=== PATIENT | male | born 1950 | race Caucasian/White ===

== ENCOUNTER → 2016-07-10 | Outpatient (CLI) | payer MEDICARE ==
--- NOTE | 2016-07-10 15:06 | NM ---
EXAMINATION TYPE: NM bone scan whole body DATE OF EXAM: 07/10/2016 2:54 PM COMPARISON: NONE HISTORY: Cervical pain. Delayed whole-body scanning was performed following the injection of 25.9 mCi Tc 99m MDP. Images acq uired 3 hours post injection. FINDINGS: There is minimal uptake in the posterior elements on the left in the mid cervical spine. There is a s mall amount of increased activity in what appears to represent T2 vertebral body. IMPRESSION: 1. PROBABLE DEGENERATIVE UPTAKE ON THE LEFT IN THE MID CERVICAL REGION. 2. INCREASED ACTIVITY IN THE T2 VERTEBRAL BODY IS NONSPECIFIC. FURTHER INVESTIGATION TO EXCLUDE A EDGAR PLASTIC PROCESS WOULD BE SUGGESTED.
--- NOTE | 2016-07-10 15:22 | XR ---
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 COMPARISON: None. FINDINGS: There has been a previous ACDF at C6-7 and a bony fusion at C5-6. Alignment remains normal . Atlantoaxial relationships are normal. There is no abnormal motion of the spine in flexion or exten archana. There is mild facet arthropathy and uncovertebral joint disease most marked at C4-5. The interv ertebral foramina are not assessed. IMPRESSION: STATUS POST FUSION FROM C5 THROUGH C7.
== END | disposition home or self-care (01) ==
LOC: RADNMMAIN 10:11
DX: M47.22 Other spondylosis with radiculopathy, cervical region (principal); R94.8 Abnormal results of function studies of other organs and systems; Z98.1 Arthrodesis status
CPT/HCPCS: 72052; 78306; A9503

== ENCOUNTER → 2016-07-20 | Outpatient (CLI) | payer MEDICARE ==
--- NOTE | 2016-07-20 15:30 | XR ---
EXAMINATION TYPE: XR chest 2V DATE OF EXAM: 07/20/2016 3:17 PM COMPARISON: NONE TECHNIQUE: PA and lateral views submitted. HISTORY: Cough FINDINGS: The lungs are clear and there is no pneumothorax, pleural effusion, or focal pneumonia. Postsurgica l change overlying the right shoulder and cervical spine. Linear change involving the right lung comp atible scarring or atelectasis. IMPRESSION: 1. No acute process.
== END | disposition home or self-care (01) ==
LOC: RADXRMAIN 15:01
PROVIDERS: ATTEND Family Medicine
DX: R05 Cough (principal)
CPT/HCPCS: 71020

== ENCOUNTER → 2016-07-24 | Outpatient (CLI) | payer MEDICARE ==
--- NOTE | 2016-07-24 18:30 | MR ---
EXAMINATION TYPE: MR thoracic spine wo con DATE OF EXAM: 07/24/2016 5:55 PM COMPARISON: NONE HISTORY: Mid back pain x 1 year CONTRAST: Performed utilizing 0 mL intravenous MultiHance gadolinium contrast. TECHNIQUE: Multiplanar, multiecho imaging on a 3.0 Jazz magnet is performed through the thoracic spi ne. Spinal cord maintains normal signal through its visualized course. Vertebral body alignment is normal. Vertebral body heights are preserved. T1-2: Mild disc bulge with anterior thecal sac contact. No AP spinal canal stenosis or neural foramin al stenosis is present. T2-T3: There is left paracentral disc bulge with moderate anterior thecal sac compression. T7-T8: Mild disc bulge to the left paracentral region has mild anterior thecal sac contact. No cord c ontact is evident. No spinal canal stenosis or neural foraminal stenosis present. T10-T11: Minimal left paracentral disc bulging is anterior thecal sac contact without spinal canal st enosis or neural foraminal stenosis. Disc hydration levels are preserved. No spinal canal stenosis is evident. Spinal cord maintains normal signal through its visualized cours e. IMPRESSIONS: 1. Mild disc bulging T1-2, T2-3, T7-8, T10-T11. Greatest compression appears to be T2-T3 level.
== END ==
LOC: RADMRIMAIN 17:04
PROVIDERS: ATTEND Family Medicine
DX: M51.24 Other intervertebral disc displacement, thoracic region (principal)
CPT/HCPCS: 72146

== ENCOUNTER → 2016-09-24 | Outpatient (CLI) | payer MEDICARE ==
--- NOTE | 2016-09-24 12:28 | XR ---
EXAMINATION TYPE: XR cervical spine limited DATE OF EXAM: 09/24/2016 CLINICAL HISTORY: Postop evaluation TECHNIQUE: 3 views of the cervical spine are submitted. COMPARISON: 07/10/2016 FINDINGS: There is been interval anterior cervical discectomy and fusion at C3-4 and C4-5 with interv ertebral stabilizers noted an anterior fixation plate evident. Alignment is anatomic. More remote fus ion noted at C5-6 and C6-7 remains unchanged. Mild fullness of the anterior vertebral soft tissues me asuring 2.2 cm. Degenerative change cervical apophyseal joints. IMPRESSION: 1. Postoperative changes as discussed with appropriate alignment. 2. Edema of the prevertebral soft tissues as noted.
== END | disposition home or self-care (01) ==
LOC: RADXRMAIN 11:44
DX: M79.89 Other specified soft tissue disorders (principal); Z98.1 Arthrodesis status
CPT/HCPCS: 72040

== ENCOUNTER → 2016-11-03 | Outpatient (CLI) | payer MEDICARE ==
--- NOTE | 2016-11-03 11:17 | XR ---
EXAMINATION TYPE: XR cervical spine limited , 4 VIEWS DATE OF EXAM ORDERED: 11/03/2016 HISTORY: M47.22 spondylosis with radiculopathy. COMPARISON: Previous study dated 09/24/2016. FINDINGS: There has been a previous ACDF at C6-7 and a more recent ACDF from C3 through to C5 with s pacer placement. Alignment is maintained. Prevertebral soft tissues have returned to normal. Atlantoa xial relationships are normal. IMPRESSION: STATUS POST CERVICAL FUSION.
== END | disposition home or self-care (01) ==
LOC: RADXRMAIN 10:51
DX: M47.22 Other spondylosis with radiculopathy, cervical region (principal); Z98.1 Arthrodesis status
CPT/HCPCS: 72040

== ENCOUNTER → 2017-11-18 | Outpatient (CLI) | payer MEDICARE ==
--- NOTE | 2017-11-18 14:12 | US ---
EXAMINATION TYPE: US thyroid st tissue head/neck DATE OF EXAM: 11/18/2017 COMPARISON: MRI cervical spine June 11, 2016 and older exam May 23, 2014 CLINICAL HISTORY: E04.1 NONTOXIC SINGLE THYROID NODULE. GLAND SIZE: Right Lobe: 3.1 x 1.6 x 1.1 cm Overall Parenchyma: homogenous Left Lobe: 3.2 x 2.0 x 1.1 cm Overall Parenchyma: homogeneous Isthmus Thickness: 0.4 cm NODULES RIGHT: # of nodules measured on right: 1 1. 0.9 X 0.7 x 0.9 cm hypoechoic solid nodule at the mid pole with well-defined margins; . This no dule is wider than tall and shows intranodular vascularity. Prior size: No previous LEFT: # of nodules measured on left: 2 1. 0.5 X 0.4 x 0.4 cm hypoechoic cystic nodule at the upper pole with well-defined margins; . This nodule is as wide as tall and shows no intranodular vascularity. Prior size: No previous 2. 0.5 X 0.5 x 0.4 cm hypoechoic cystic nodule at the upper pole with well-defined margins; . This nodule is wider than tall and shows no intranodular vascularity. Prior size: No previous ISTHMUS: # of nodules measured in the isthmus: 0 Bilateral neck scanned, no evidence of lymphadenopathy. Small size thyroid with scattered small nodules is identified. IMPRESSION: Small size thyroid with subcentimeter nodules, largest nodule posteriorly lower pole level right thyr oid is grossly unchanged in size from MRI in 2016 and 2014. No suspicious greater than 1 cm nodules i dentified.
== END ==
LOC: RADUSWWP 13:14
PROVIDERS: ATTEND Family Medicine
DX: E04.1 Nontoxic single thyroid nodule (principal)
CPT/HCPCS: 76536

== ENCOUNTER → 2017-11-19 | Outpatient (CLI) | payer MEDICARE ==
--- NOTE | 2017-11-19 18:20 | CT ---
EXAMINATION TYPE: CT brain wo con DATE OF EXAM: 11/19/2017 COMPARISON: None HISTORY: Headaches CT DLP: 1097 mGycm Automated exposure control for dose reduction was used. FINDINGS: There is mild cerebral cortical atrophy. There is no mass effect nor midline shift. There is no sign of intracranial hemorrhage. The calvarium appears intact. IMPRESSION: MILD CEREBRAL ATROPHY. NO ACUTE INTRACRANIAL ABNORMALITY.
== END | disposition home or self-care (01) ==
LOC: RADCTMAIN 17:36
PROVIDERS: ATTEND Family Medicine
DX: G31.9 Degenerative disease of nervous system, unspecified (principal)
CPT/HCPCS: 70450

== ENCOUNTER → 2018-01-05 | Outpatient (CLI) | payer MEDICARE ==
[2018-01-05 07:25] LABS: Blood Urea Nitrogen 20 mg/dL (9-20)
--- NOTE | 2018-01-05 11:36 | CT ---
EXAMINATION TYPE: CT soft tissue neck wo/w con DATE OF EXAM: 01/05/2018 8:08 AM COMPARISON: Ultrasound 11/18/2017 HISTORY: R22.1 CT DLP: 588 mGycm Automated exposure control for dose reduction was used. CONTRAST: CT scan of the neck is performed following without and with IV Contrast, patient injected with 100 mL of Isovue 300. Axial images are obtained, coronal and sagittal reformatted images are reviewed. FINDINGS: Airway: No gross abnormality seen. Parotid/submandibular glands: There is a mass at the level of patient's overlying marker in the righ t parotid gland measuring approximately 2 x 1.5 x 3.3 cm. Additional smaller mass also present in the right parotid just posterior to the upper aspect of the first mass which measures approximately 12 x 6 x 9 mm. Smaller 5 mm mass was similar enhancement noted in the left parotid gland measuring approx imately 5 mm. Carotid/Vascular Structures: Patent, left vertebral artery is dominant. Osseous Structures: Postop changes are noted in the cervical spine. Multilevel foraminal encroachment . Other: Lung apices are unremarkable. No evident adenopathy. Sinus disease noted at the frontal ethmoi carlotta region. 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
== END | disposition home or self-care (01) ==
LOC: RADCTMAIN 06:44
PROVIDERS: ATTEND Family Medicine
DX: K11.8 Other diseases of salivary glands (principal)
CPT/HCPCS: 82565; 84520; 70492; Q9967

== ENCOUNTER → 2018-01-13 | Outpatient (CLI) | payer MEDICARE ==
--- NOTE | 2018-01-13 10:45 | FL ---
EXAMINATION TYPE: FL barium swallow DATE OF EXAM: 01/13/2018 CLINICAL HISTORY: Dysphasia. History of 5 prior neck surgeries. Hoarseness of voice. TECHNIQUE: A double contrast esophagram is performed utilizing air and barium. A total of 55 second s of fluoroscopic time was utilized during procedure. 56 spot images are saved to PACS. COMPARISON: CT neck January 05, 2018. FINDINGS: The esophagus shows mild dysmotility with slight delay in emptying into the stomach. Occasi onal abnormal secondary and tertiary contractions are present. There is long segment anterior fusion plate with ossific fusion from C3 through C7 vertebra redemonstrated. Small sliding-type hiatal lizbeth ia is identified. No intraluminal mass or stricture is present. No suspicious outpouching or divertic ulum is seen. No significant gastroesophageal reflux was seen during real time performance of this st udy. IMPRESSION: No obvious mass or stricture to account for patient's symptoms of proximal dysphasia. S mall to moderate-size sliding-type hiatal hernia incidentally noted during performance of study.
== END | disposition home or self-care (01) ==
LOC: RADFLWHC 08:37
PROVIDERS: ATTEND Otolaryngology
DX: K44.9 Diaphragmatic hernia without obstruction or gangrene (principal); R13.10 Dysphagia, unspecified; K11.8 Other diseases of salivary glands
CPT/HCPCS: 74220

== ENCOUNTER → 2019-04-20 | Outpatient (CLI) | payer MEDICARE ==
[2019-04-20 08:45] LABS: Basophils # (A) 0.1 k/uL (0-0.2); Basophils % (A) 1 %; Eosinophils # (A) 0.1 k/uL (0-0.7); Eosinophils % (A) 1 %; HCT 45.4 % (39.0-53.0); Lymphocytes # (A) 1.7 k/uL (1.0-4.8); Lymphocytes % (A) 21 %; MCH 29.8 pg (25.0-35.0); MCV 90.5 fL (80.0-100.0); Mean Platelet Volume 7.6; Monocytes # (A) 0.5 k/uL (0-1.0); Monocytes % (A) 6 %; Neutrophils # (A) 5.5 k/uL (1.3-7.7); Neutrophils % (A) 68 %; Platelet Count 230 k/uL (150-450); RBC 5.01 m/uL (4.30-5.90); RDW 13.2 % (11.5-15.5); WBC 8.1 k/uL (3.8-10.6)
[2019-04-20 08:58] LABS: Calcium 9.5 mg/dL (8.4-10.2); Potassium 4.3 mmol/L (3.5-5.1)
== END | disposition home or self-care (01) ==
LOC: LABPAT 08:30
PROVIDERS: ATTEND Urology
DX: Z01.818 Encounter for other preprocedural examination (principal); Z01.812 Encounter for preprocedural laboratory examination; N40.1 Benign prostatic hyperplasia with lower urinary tract symptoms; E11.9 Type 2 diabetes mellitus without complications; I10 Essential (primary) hypertension
CPT/HCPCS: 36415; 80048; 85025; 93005

== ENCOUNTER 2019-04-27 06:44 | Day surgery (SDC) | payer MEDICARE ==
[2019-04-21 10:16] VITALS: BMI 31.6
--- NOTE | 2019-04-25 13:52 | P.GSHP ---
History of Present Illness H&P Date: 04/25/19 Chief Complaint: Incomplete bladder emptying The patient is a 69-year-old white male with BPH, for which he takes tamsulosin 0.8 mg daily. In February 2019 he experienced urethral bleeding for several days. The postvoid residual was found to be 548 mL. He underwent cystoscopy, revealing trilobar BPH with an intravesical median lobe. Urinary flow study showed a diminished stream with incomplete bladder emptying. Alternative treatment options were reviewed, and he has elected to undergo a TURP. He comes for this reason. 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,,severe headaches,kidney stones History of Any Multi-Drug Resistant Organisms: None Reported Past Surgical History: Orthopedic Surgery Additional Past Surgical History / Comment(s): cervical neck fusions,rot cuff repair,hola carpel tunnel,rt inguinal hernia,hola shoulders arthroscopies x6,kidney stone removal Past Anesthesia/Blood Transfusion Reactions: No Reported Reaction Smoking Status: Former smoker - Past Family History Mother Family Medical History: No Reported History Father Family Medical History: Cancer Brother(s) Family Medical History: Cancer Additional Family Medical History / Comment(s): thyroid Medications and Allergies Home Medications Medication Instructions Recorded Confirmed Type Amitriptyline HCl [Elavil] 50 mg PO HS 01/11/18 04/21/19 History Atenolol [Tenormin] 50 mg PO QAM 01/11/18 04/21/19 History Atorvastatin Calcium [Lipitor] 20 mg PO HS 01/11/18 04/21/19 History Baclofen [Lioresal] 10 mg PO TID 01/11/18 04/21/19 History Losartan/Hydrochlorothiazide 1 each PO QAM 01/11/18 04/21/19 History [Losartan-Hctz 100-25 mg Tab] Ranitidine HCl [Zantac] 150 mg PO BID 01/11/18 04/21/19 History Tamsulosin HCl [Flomax] 0.8 mg PO HS 01/11/18 04/21/19 History metFORMIN HCL [Glucophage] 500 mg PO BID 01/11/18 04/21/19 History traMADol HCL [Ultram] 50 mg PO Q6HR PRN 01/11/18 04/21/19 History Allergies Allergy/AdvReac Type Severity Reaction Status Date / Time lisinopril Allergy Anaphylaxis Verified 04/21/19 10:05 naproxen [From Aleve] Allergy Swelling Verified 04/21/19 10:05 hands,hives gabapentin AdvReac difficulty Verified 04/21/19 10:05 with urination Surgical - Exam - General well developed, well nourished, no distress - Neck trachea midline, other (3 cm right submandibular mass) - Respiratory normal respiratory effort, clear to auscultation - Cardiovascular Rhythm: regular Abnormal Heart Sounds: no systolic murmur, no diastolic murmur - Abdomen Abdomen: soft, non tender, no guarding, no rigid, no rebound - Genitourinary normal penis with no external lesions, testicles non-tender - Rectum Rectum: normal sphincter tone, no masses, other (Prostate moderately enlarged and smooth) - Psychiatric oriented to time, oriented to person, oriented to place, speech is normal, memory intact Assessment and Plan (1) Benign prostatic hyperplasia with lower urinary tract symptoms Status: Acute Code(s): N40.1 - BENIGN PROSTATIC HYPERPLASIA WITH LOWER URINARY TRACT SYMP SNOMED Code(s): 270519313 Plan: Cystoscopy, bipolar transurethral resection of prostate (TURP). The procedure has been reviewed in detail with the patient. The anticipated perioperative course was discussed. He was made aware potential risks, which include anesthesia, bleeding, infection, vesical neck contracture, urethral stricture, u rinary incontinence, and retrograde ejaculation.
[~2019-04-27 06:44] MED LIST: DEXAMETHASONE SOD PHOSPHATE 10 MG/ML 1 ML VIAL IV ONE; LACTATED RINGERS 1,000 ML IV SCH; LIDOCAINE 1% 20 ML VIAL (10MG/ML) FOR IV START INTRADERMA PRN; MIDAZOLAM 2 MG/2 ML VIAL IV PRN; fentaNYL (PF) 50 MCG/ML 2 ML AMP IV PRN
[2019-04-27] MEDS ORDERED: ONDANSETRON 4 MG/2 ML VIAL IVP ONE (07:00)
[2019-04-27 07:05] LABS: Glucose,Whole Blood 147 mg/dL (75-99)
[2019-04-27] MEDS ORDERED: NEOSTIGMINE 1 MG/ML 10 ML VIAL ONE (07:30)
[2019-04-27] MEDS ORDERED: ROCURONIUM BROMIDE 10 MG/ML 5 ML VIAL IV ONE (07:30)
[2019-04-27] MEDS ORDERED: LIDOCAINE 1% INJ 10MG/ML (20 ML MDV) ONE (07:30)
[2019-04-27] MEDS ORDERED: PHENYLEPHRINE-0.9% NACL SYG 1 MG/10 ML SYRINGE ONE (07:30)
[2019-04-27] MEDS ORDERED: fentaNYL (PF) 50 MCG/ML 2 ML AMP ONE (07:30)
[2019-04-27] MEDS ORDERED: MIDAZOLAM 2 MG/2 ML VIAL ONE (07:30)
[2019-04-27] MEDS ORDERED: PROPOFOL 10 MG/ML 20 ML VIAL IV ONE (07:30)
[2019-04-27] MEDS ORDERED: SUCCINYLCHOLINE CHLORIDE 100 MG/5 ML SYR IV ONE (07:30)
[2019-04-27] MEDS ORDERED: GLYCOPYRROLATE 0.2 MG/ML 2 ML VIAL ONE (07:30)
[2019-04-27] MEDS ORDERED: LACTATED RINGERS 1,000 ML IV ONE (08:05)
[2019-04-27 10:06] VITALS: TEMP 97
--- NOTE | 2019-04-27 10:15 | P.OP ---
Date of Procedure: 04/27/19 Preoperative Diagnosis: BPH with obstruction Postoperative Diagnosis: Same Procedure(s) Performed: Cystoscopy, bipolar transurethral resection of prostate (TURP) Anesthesia: ILIANA Surgeon: Ramu Pa Estimated Blood Loss (ml): 75 IV fluids (ml): 1,100 Pathology: other (Prostate chips) Condition: stable Disposition: PACU Indications for Procedure: The patient is a 69-year-old white male with BPH, for which he takes tamsulosin 0.8 mg daily. In February 2019 he experienced urethral bleeding for several days. The postvoid residual was found to be 548 mL. He underwent cystoscopy, revealing trilobar BPH with an intravesical median lobe. Urinary flow study showed a diminished stream with incomplete bladder emptying. Alternative treatment options were reviewed, and he has elected to undergo a TURP. He comes for this reason. Operative Findings: Trilobar BPH Description of Procedure: The patient was taken in the operating room and placed in the dorsolithotomy position. The external genitalia was prepped and draped sterilely. The 25- [place] ACMI resectoscope sheath was introduced into the bladder. The bladder was inspected. Both ureteral orifices were of normal anatomic location and configuration, and clear urine effluxed from both. No tumors or foreign bodies were seen. Several diverticuli were seen, one on the right and 2 on the left. Examination of the prostate revealed complete obstruction with a trilobar configuration. Using the bipolar cutting loop, the median lobe was resected initially. Next, the lateral lobes were resected down to the surgical capsule. The floor of the prostate was then resected, proximal to the verumontanum. Lastly, any remaining anterior tissue was resected. The remaining apical tissue was then carefully resected. The resection was carried down to the surgical capsule in all 4 quadrants. The prostatic fossa was then carefully examined, and any areas of bleeding were controlled with electrocautery. Excellent hemostasis was attained. The resectoscope was withdrawn into the bulbous urethra. The external urinary sphincter remained intact. The prostatic fossa was open. The Prefundia evacuator was used to remove all prostate chips from the bladder. These were saved and sent for pathologic examination. The resectoscope was removed, and a 20 Maldivian Baez catheter was placed. The return was essentially clear. The patient tolerated the procedure well was taken to the recovery room in stable condition.
[2019-04-27 10:22] LABS: Glucose,Whole Blood 158 mg/dL (75-99)
[2019-04-27 11:17] VITALS: BP 121/81; PULSE 67; RESP 16
== END 2019-04-27 11:43 | disposition home or self-care (01) ==
LOC: OR 06:44
PROVIDERS: ATTEND Urology
DX: N40.1 Benign prostatic hyperplasia with lower urinary tract symptoms (principal); R33.8 Other retention of urine; N36.8 Other specified disorders of urethra; N52.9 Male erectile dysfunction, unspecified; K21.9 Gastro-esophageal reflux disease without esophagitis; E78.5 Hyperlipidemia, unspecified; I10 Essential (primary) hypertension; E11.9 Type 2 diabetes mellitus without complications; D11.9 Benign neoplasm of major salivary gland, unspecified; B27.00 Gammaherpesviral mononucleosis without complication; Z87.442 Personal history of urinary calculi; Z98.1 Arthrodesis status; R51 Headache; Z87.891 Personal history of nicotine dependence; Z97.2 Presence of dental prosthetic device (complete) (partial); Z79.84 Long term (current) use of oral hypoglycemic drugs; Z79.899 Other long term (current) drug therapy; Z88.6 Allergy status to analgesic agent; Z88.8 Allergy status to other drugs, medicaments and biological substances
CPT/HCPCS: 52601; J2250; J1100; J2710; J0690; J2405; J2001; J3010; J2370; J0330; J2704; 88305; 88344

== ENCOUNTER → 2019-12-04 | Outpatient (CLI) | payer MEDICARE | END | disposition home or self-care (01) | LOC: LABWHC1 10:22 | PROVIDERS: ATTEND Urology | DX: C61 Malignant neoplasm of prostate (principal) | CPT/HCPCS: 36415; 84153 ==

== ENCOUNTER → 2020-04-21 | Outpatient (CLI) | payer MEDICARE ==
--- NOTE | 2020-04-21 10:01 | XR ---
EXAMINATION TYPE: XR abdomen 1V DATE OF EXAM: 04/21/2020 COMPARISON: NONE HISTORY: Pain TECHNIQUE: One view abdominal series FINDINGS: The osseous structures are intact. The bowel gas pattern is nonspecific. Hypertrophic changes of the spine. No suspicious calcifications identified. Rounded lucency involving the right iliac bone. This could be chronic. IMPRESSION: 1. Nonspecific abdomen. No suspicious calcifications seen. 2. There is a rounded lucent lesion involving the right iliac bone which appears well-circumscribed a nd could be chronic and benign. CT scan of the pelvis could be obtained as clinically warranted. Ther e are no prior exams to compare.
== END | disposition home or self-care (01) ==
LOC: RADXRMAIN 09:37
PROVIDERS: ATTEND Urology
DX: N23 Unspecified renal colic (principal)
CPT/HCPCS: 74018

== ENCOUNTER → 2020-05-17 | Outpatient (CLI) | payer MEDICARE ==
--- NOTE | 2020-05-17 10:48 | CT ---
EXAMINATION TYPE: CT abdomen pelvis wo con DATE OF EXAM: 05/17/2020 HISTORY: Lt flank pain, history of prostate cancer. Recent abnormal x-ray. CT DLP: 913 mGycm. Automated Exposure Control for Dose Reduction was Utilized. TECHNIQUE: CT scan of the abdomen and pelvis is performed without oral or IV contrast. COMPARISON: Abdominal x-ray April 21, 2020 FINDINGS: Within the limitations of a non-contrast study, the following observations are made. LUNG BASES: No significant abnormality is appreciated. LIVER/GB: Subcentimeter lesion in the right hepatic dome axial image 11 favors an benign thin-walled cyst, additional scattered smaller lesions for reference anteriorly on axial image 28 noted. PANCREAS: Moderate focal atrophy involving head and uncinate process. SPLEEN: No significant abnormality is seen. ADRENALS: Slightly asymmetric thickening left adrenal gland favoring benign lipid rich hyperplasia. KIDNEYS: Cortical thinning bilaterally. There is 3 mm nonobstructing calculus medially upper pole lef t kidney coronal image 66. There is mild proximal left hydroureter up to level of crossing iliac vess els. No definitive obstructing stone. No pyelocaliectasis. No right-sided renal calculus or hydroneph rosis. Urinary bladder shows moderate distention with bilateral diverticula along the posterior peggy ns near axial image 110. There is there are diverticula in the midline inferiorly axial image 118. No intraluminal calculi. TURP type defect in the prostate is present. BOWEL: Normal-appearing appendix seen medially from the cecum. GENITAL ORGANS: Prostate gland currently not enlarged with TURP defect. Adjacent small scattered pelv ic phleboliths.. LYMPH NODES: No greater than 1cm abdominal or pelvic lymph nodes are appreciated. OSSEOUS STRUCTURES: Well-defined defect in the right iliac bone axial image 86 is suspected product o f prior bone harvesting procedure, correlate clinically. Remainder of the study shows facet arthropat hy mid to lower lumbar spine. No additional suspicious focal lytic or sclerotic lesion. OTHER: Fyyt-od-oxpaqged calcified plaque of the aorta extends into branch vessels. IMPRESSION: There is 3 mm nonobstructing left renal calculus. No hydronephrosis or obstructing ureter al calculi bilaterally. There are 3 bladder diverticula in the moderately distended bladder. Suspect bone harvesting procedure with well-defined defect in the right iliac bone at area of x-ray concern. No additional suspicious lytic or sclerotic osseous lesions are present.
== END | disposition home or self-care (01) ==
LOC: RADCTMAIN 10:12
PROVIDERS: ATTEND Urology
DX: N20.0 Calculus of kidney (principal); N32.3 Diverticulum of bladder; N32.89 Other specified disorders of bladder; Z88.6 Allergy status to analgesic agent; Z88.8 Allergy status to other drugs, medicaments and biological substances
CPT/HCPCS: 74176

== ENCOUNTER → 2020-12-06 | Outpatient (CLI) | payer MEDICARE | END | disposition home or self-care (01) | LOC: LABWHC1 08:42 | PROVIDERS: ATTEND Urology | DX: C61 Malignant neoplasm of prostate (principal) | CPT/HCPCS: 36415; 84153 ==

== ENCOUNTER → 2021-12-08 | Outpatient (CLI) | payer MEDICARE | END | disposition home or self-care (01) | LOC: LABWHC1 07:31 | PROVIDERS: ATTEND Urology | DX: C61 Malignant neoplasm of prostate (principal) | CPT/HCPCS: 36415; 84153 ==

== ENCOUNTER 2022-01-16 07:57 | Observation (INO) | payer MEDICARE ==
[2022-01-16] MEDS ORDERED: LORazepam 2 MG/ML INJ IV STA (08:24)
[2022-01-16] MEDS ORDERED: NITROGLYCERIN OINT 1 INCH/GM PACKET TOPICAL STA (08:25)
--- NOTE | 2022-01-16 08:28 | ED ---
General Adult HPI - General Chief complaint: Chest Pain Stated complaint: Chest pain Time Seen by Provider: 01/16/22 08:07 Source: patient, family, RN notes reviewed Mode of arrival: ambulatory Limitations: no limitations - History of Present Illness Initial comments: Patient is a pleasant 71-year-old male presenting to the emergency Department with complaints of chest pain. Patient has chronic pain in his lower chest as well as neck and left shoulder. Patient is unclear but feels this is new and different. Patient also has associated dyspnea. No fever. Patient did have a cough that has resolved. No nausea vomiting. Discomfort is difficult to explain. Patient states he feels anxious. - Related Data Home Medications Medication Instructions Recorded Confirmed Atorvastatin Calcium [Lipitor] 20 mg PO HS 01/11/18 01/16/22 Baclofen [Lioresal] 10 mg PO TID 01/11/18 01/16/22 Losartan/Hydrochlorothiazide 1 tab PO QAM 01/11/18 01/16/22 [Losartan-Hctz 100-25 mg Tab] atenoloL [Tenormin] 50 mg PO PC-LUNCH 01/11/18 01/16/22 metFORMIN HCL ER [Glucophage XR] 500 mg PO BID 01/16/22 01/16/22 Allergies Allergy/AdvReac Type Severity Reaction Status Date / Time lisinopril Allergy Anaphylaxis Verified 01/16/22 09:45 naproxen [From Aleve] Allergy Swelling Verified 01/16/22 09:45 hands,hives gabapentin AdvReac difficulty Verified 01/16/22 09:45 with urination Review of Systems ROS Statement: Those systems with pertinent positive or pertinent negative responses have been documented in the HPI. ROS Other: All systems not noted in ROS Statement are negative. Constitutional: Denies: fever Eyes: Denies: eye pain ENT: Denies: ear pain Respiratory: Reports: as per HPI Cardiovascular: Reports: as per HPI Endocrine: Denies: fatigue Gastrointestinal: Denies: abdominal pain Genitourinary: Denies: urgency Musculoskeletal: Denies: back pain Skin: Denies: rash Neurological: Denies: weakness Past Medical History Past Medical History: Diabetes Mellitus, GERD/Reflux, Hyperlipidemia, Hypertension Additional Past Medical History / Comment(s): pt stated "recent positive blood test for adilene pisano, Poss Warthin's tumors on recent CT,mult masses in the neck,currently having difficulty swallowing at times and having swallowing test on 11-13-17",severe headaches,hx kidney stones History of Any Multi-Drug Resistant Organisms: None Reported Past Surgical History: Orthopedic Surgery Additional Past Surgical History / Comment(s): cervical neck fusions,rot cuff repair,hola carpel tunnel,rt inguinal hernia,hola shoulders arthroscopies x6,kidney stone removal Past Anesthesia/Blood Transfusion Reactions: No Reported Reaction Past Psychological History: No Psychological Hx Reported Smoking Status: Former smoker Past Alcohol Use History: Occasional Past Drug Use History: None Reported - Past Family History Mother Family Medical History: No Reported History Father Family Medical History: Cancer Brother(s) Family Medical History: Cancer Additional Family Medical History / Comment(s): thyroid General Exam Limitations: no limitations General appearance: alert, in no apparent distress Head exam: Present: normocephalic Eye exam: Present: normal appearance Neck exam: Present: normal inspection. Absent: tenderness Respiratory exam: Present: normal lung sounds bilaterally. Absent: chest wall tenderness Cardiovascular Exam: Present: regular rate, normal rhythm Expanded Peripheral pulses: 2+: Radial (R), Radial (L), Posterior Tibialis (R), Posterior Tibialis (L) GI/Abdominal exam: Present: soft. Absent: tenderness Extremities exam: Present: other (Left upper trapezius and shoulder tenderness, mild) Neurological exam: Present: alert. Absent: motor sensory deficit Psychiatric exam: Present: anxious Skin exam: Present: normal color Course Vital Signs 01/16/22 08:02 Temperature 98 F Pulse Rate 117 H Respiratory 20 Rate Blood Pressure 115/74 O2 Sat by Pulse 99 Oximetry EKG Findings - EKG Comments: EKG Findings:: Interpreted by me. Sinus rhythm 73. [place] 176. QRS 83. QT 387. QTC 403. Normal axis. No QRS. No acute ST change. Medical Decision Making - Medical Decision Making Patient reevaluated and is feeling much better. Patient and family updated on results and plan. They do request further imaging such as computed tomography scan of the patient's lower ribs secondary to increase in chronic pain. [facility] has been paged for admission covering hospital observation call. - Lab Data Result diagrams: 01/16/22 08:30 01/16/22 08:30 Lab Results 01/16/22 01/16/22 01/16/22 Range/Units 08:30 08:30 08:30 WBC 7.8 (3.8-10.6) k/uL RBC 5.05 (4.30-5.90) m/uL Hgb 15.5 (13.0-17.5) gm/dL Hct 45.3 (39.0-53.0) % MCV 89.8 (80.0-100.0) fL MCH 30.7 (25.0-35.0) pg MCHC 34.2 (31.0-37.0) g/dL RDW 13.2 (11.5-15.5) % Plt Count 240 (150-450) k/uL MPV 8.0 Neutrophils % 64 % Lymphocytes % 25 % Monocytes % 8 % Eosinophils % 1 % Basophils % 1 % Neutrophils # 5.0 (1.3-7.7) k/uL Lymphocytes # 2.0 (1.0-4.8) k/uL Monocytes # 0.6 (0-1.0) k/uL Eosinophils # 0.1 (0-0.7) k/uL Basophils # 0.0 (0-0.2) k/uL PT 10.6 (9.0-12.0) sec INR 1.0 (<1.2) APTT 23.6 (22.0-30.0) sec D-Dimer 0.25 (<0.60) mg/L FEU Sodium 137 (137-145) mmol/L Potassium 3.9 (3.5-5.1) mmol/L Chloride 102 (98-107) mmol/L Carbon Dioxide 22 (22-30) mmol/L Anion Gap 13 mmol/L BUN 19 (9-20) mg/dL Creatinine 1.03 (0.66-1.25) mg/dL Est GFR (CKD-EPI)AfAm 84 (>60 ml/min/1.73 sqM) Est GFR (CKD-EPI)NonAf 73 (>60 ml/min/1.73 sqM) Glucose 152 H (74-99) mg/dL Calcium 9.9 (8.4-10.2) mg/dL Magnesium 1.6 (1.6-2.3) mg/dL Total Bilirubin 1.0 (0.2-1.3) mg/dL AST 37 (17-59) U/L ALT 26 (4-49) U/L Alkaline Phosphatase 80 (38-126) U/L Troponin I (0.000-0.034) ng/mL NT-Pro-B Natriuret Pep pg/mL Total Protein 7.3 (6.3-8.2) g/dL Albumin 5.0 (3.5-5.0) g/dL Amylase 116 H (30-110) U/L Lipase 304 H (23-300) U/L Coronavirus (PCR) (Not Detectd) 01/16/22 01/16/22 01/16/22 Range/Units 08:30 08:30 08:30 WBC (3.8-10.6) k/uL RBC (4.30-5.90) m/uL Hgb (13.0-17.5) gm/dL Hct (39.0-53.0) % MCV (80.0-100.0) fL MCH (25.0-35.0) pg MCHC (31.0-37.0) g/dL RDW (11.5-15.5) % Plt Count (150-450) k/uL MPV Neutrophils % % Lymphocytes % % Monocytes % % Eosinophils % % Basophils % % Neutrophils # (1.3-7.7) k/uL Lymphocytes # (1.0-4.8) k/uL Monocytes # (0-1.0) k/uL Eosinophils # (0-0.7) k/uL Basophils # (0-0.2) k/uL PT (9.0-12.0) sec INR (<1.2) APTT (22.0-30.0) sec D-Dimer (<0.60) mg/L FEU Sodium (137-145) mmol/L Potassium (3.5-5.1) mmol/L Chloride (98-107) mmol/L Carbon Dioxide (22-30) mmol/L Anion Gap mmol/L BUN (9-20) mg/dL Creatinine (0.66-1.25) mg/dL Est GFR (CKD-EPI)AfAm (>60 ml/min/1.73 sqM) Est GFR (CKD-EPI)NonAf (>60 ml/min/1.73 sqM) Glucose (74-99) mg/dL Calcium (8.4-10.2) mg/dL Magnesium (1.6-2.3) mg/dL Total Bilirubin (0.2-1.3) mg/dL AST (17-59) U/L ALT (4-49) U/L Alkaline Phosphatase (38-126) U/L Troponin I <0.012 (0.000-0.034) ng/mL NT-Pro-B Natriuret Pep 64 pg/mL Total Protein (6.3-8.2) g/dL Albumin (3.5-5.0) g/dL Amylase (30-110) U/L Lipase (23-300) U/L Coronavirus (PCR) Not Detected (Not Detectd) - Radiology Data Radiology results: image reviewed (Chest x-ray shows no acute process) Disposition Clinical Impression: Chest pain Disposition: ADMITTED IP TO THIS HOSP Is patient prescribed a controlled substance at d/c from ED?: No Referrals: Nicolle Oleary III, MD [Primary Care Provider] - 1-2 days Time of Disposition: 10:03
[2022-01-16 08:48] LABS: Basophils % (A) 1 %; Eosinophils # (A) 0.1 k/uL (0-0.7); Eosinophils % (A) 1 %; HCT 45.3 % (39.0-53.0); HGB 15.5 gm/dL (13.0-17.5); Lymphocytes % (A) 25 %; MCH 30.7 pg (25.0-35.0); MCHC 34.2 g/dL (31.0-37.0); MCV 89.8 fL (80.0-100.0); Monocytes # (A) 0.6 k/uL (0-1.0); Monocytes % (A) 8 %; Neutrophils % (A) 64 %; Platelet Count 240 k/uL (150-450); RBC 5.05 m/uL (4.30-5.90); RDW 13.2 % (11.5-15.5); WBC 7.8 k/uL (3.8-10.6)
[2022-01-16 08:58] LABS: Calcium 9.9 mg/dL (8.4-10.2); Magnesium 1.6 mg/dL (1.6-2.3); Potassium 3.9 mmol/L (3.5-5.1); Total Protein 7.3 g/dL (6.3-8.2)
[2022-01-16 09:03] LABS: Partial Thromboplastin Time 23.6 sec (22.0-30.0); Prothrombin Time 10.6 sec (9.0-12.0)
--- NOTE | 2022-01-16 09:32 | XR ---
EXAMINATION TYPE: XR chest 2V DATE OF EXAM: 01/16/2022 COMPARISON: 07/20/2016 HISTORY: Shortness of breath TECHNIQUE: Frontal and lateral views of the chest are obtained. FINDINGS: Scattered senescent parenchymal changes noted. Hyperinflation compatible with COPD. No evidence for infiltrate. No evidence for atelectasis. Heart size is stable. Mediastinal structures are stable and grossly unremarkable. No evidence for hilar prominence. Degenerative changes dorsal spine. IMPRESSION: 1. No evidence for acute pulmonary disease.
[2022-01-16] MEDS ORDERED: NITROGLYCERIN SL TABS 0.4 MG TAB SUBLINGUAL PRN (10:04)
[2022-01-16] MEDS ORDERED: RX INFO: IV CONTRAST WAS GIVEN 1 EACH MISC MISCELLANE PRN (10:04)
--- NOTE | 2022-01-16 12:17 | P.CRDCN ---
History of Present Illness Consult date: 01/16/22 History of present illness: HISTORY OF PRESENT ILLNESS: This is a 71-year-old male with a past medical history significant for hypertension, hyperlipidemia, and diabetes. 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 We have been asked to see the patient in consultation for chest pain. Patient examined at the bedside. Patient reports 20 years ago he was involved in an accident with a heavy piece of machinery that hit his left side. He states since that time he has had chronic pain of the lower left chest. Patient states he recently stopped taking Elavil (that was prescribed for nerve and neck pain). Patient states he has not been sleeping well. He states he feels confused at times and feels shaky. He reports the pain in his chest today was worse than normal. He reports feeling SOB as well. He states the pain is worse with exertion. He denies any previous history of CAD. He is a former smoker and quit smoking in 1995. * EKG reveals sinus mechanism with no signs of acute ischemia * Chest xray negative for acute process * Laboratory data: WBC 7.8. Hemoglobin 15.5. Platelet count 240. D-dimer 0.25. Sodium 137. Potassium 3.9. BUN 19. Creatinine 1.03. Troponin negative 1. ProBNP 64. Amylase 116. Lipase 304. * Current home cardiac medications include Lipitor 20 mg at night, atenolol 50 mg daily, and losartan-hydrochlorothiazide 100-25mg daily REVIEW OF SYSTEMS: At the time of my exam: CONSTITUTIONAL: Denies fever or chills. HEENT: Denies blurred vision, vision changes, or eye pain. Denies hemoptysis CARDIOVASCULAR: Denies chest pain. Denies orthopnea. Denies PND. Denies palpitations RESPIRATORY: Denies shortness of breath. GASTROINTESTINAL: Denies abdominal pain. Denies nausea or vomiting. HEMATOLOGIC: Denies bleeding disorders. GENITOURINARY: Denies any blood in urine. SKIN: Denies pruitis. Denies rash. PHYSICAL EXAM: VITAL SIGNS: Reviewed. GENERAL: Well-developed in no acute distress. HEENT: Head is normocephalic. Pupils are equal, round. Sclerae anicteric. Mucous membranes of the mouth are moist. Neck supple. No JVD or thyromegaly LUNGS: Respirations even and unlabored. Lungs essentially clear to auscultation bilaterally. HEART: Regular rate and rhythm. S1 and S2 heard. ABDOMEN: Soft. Nondistended. Nontender. EXTREMITIES: Normal range of motion. No clubbing or cyanosis. Peripheral pulses intact. No lower extremity edema NEUROLOGIC: Awake and alert. Oriented x 3. ASSESSMENT: Chest pain Hypertension Hyperlipidemia Diabetes Chronic neck and back pain Chronic left sided pain x 20 years from heavy machinery accident Former nicotine dependence, patient quit smoking in 1995 PLAN: Trend troponins Obtain 2D echo to assess cardiac structure and function Check Lipid panel Add aspirin 81mg daily Resume home cardiac medications Possible stress test depending on echo results and troponins Further recommendations pending patient course Nurse practitioner note has been reviewed by physician. Signing provider agrees with the documented findings, assessment, and plan of care. Past Medical History Past Medical History: Diabetes Mellitus, GERD/Reflux, Hyperlipidemia, Hypertension Additional Past Medical History / Comment(s): pt stated "recent positive blood test for adilene pisano, Poss Warthin's tumors on recent CT,mult masses in the neck,currently having difficulty swallowing at times and having swallowing test on 11-13-17",severe headaches,hx kidney stones History of Any Multi-Drug Resistant Organisms: None Reported Past Surgical History: Orthopedic Surgery Additional Past Surgical History / Comment(s): cervical neck fusions,rot cuff repair,hola carpel tunnel,rt inguinal hernia,hola shoulders arthroscopies x6,kidney stone removal Past Anesthesia/Blood Transfusion Reactions: No Reported Reaction Past Psychological History: No Psychological Hx Reported Smoking Status: Former smoker Past Alcohol Use History: Occasional Past Drug Use History: None Reported - Past Family History Mother Family Medical History: No Reported History Father Family Medical History: Cancer Brother(s) Family Medical History: Cancer Additional Family Medical History / Comment(s): thyroid Medications and Allergies Home Medications Medication Instructions Recorded Confirmed Type Atorvastatin Calcium [Lipitor] 20 mg PO HS 01/11/18 01/16/22 History Baclofen [Lioresal] 10 mg PO TID 01/11/18 01/16/22 History Losartan/Hydrochlorothiazide 1 tab PO QAM 01/11/18 01/16/22 History [Losartan-Hctz 100-25 mg Tab] atenoloL [Tenormin] 50 mg PO PC-LUNCH 01/11/18 01/16/22 History metFORMIN HCL ER [Glucophage XR] 500 mg PO BID 01/16/22 01/16/22 History Allergies Allergy/AdvReac Type Severity Reaction Status Date / Time lisinopril Allergy Anaphylaxis Verified 01/16/22 09:45 naproxen [From Aleve] Allergy Swelling Verified 01/16/22 09:45 hands,hives gabapentin AdvReac difficulty Verified 01/16/22 09:45 with urination Physical Exam Vitals: Vital Signs Temp Pulse Resp BP Pulse Ox 01/16/22 08:02 98 F 117 H 20 115/74 99 Intake and Output 01/15/22 01/16/22 01/16/22 22:59 06:59 14:59 Other: Weight 79.379 kg Results 01/16/22 08:30 01/16/22 08:30 Cardiac Enzymes 01/16/22 01/16/22 Range/Units 08:30 08:30 AST 37 (17-59) U/L Troponin I <0.012 (0.000-0.034) ng/mL Coagulation 01/16/22 Range/Units 08:30 PT 10.6 (9.0-12.0) sec APTT 23.6 (22.0-30.0) sec CBC 01/16/22 Range/Units 08:30 WBC 7.8 (3.8-10.6) k/uL RBC 5.05 (4.30-5.90) m/uL Hgb 15.5 (13.0-17.5) gm/dL Hct 45.3 (39.0-53.0) % Plt Count 240 (150-450) k/uL Comprehensive Metabolic Panel 01/16/22 Range/Units 08:30 Sodium 137 (137-145) mmol/L Potassium 3.9 (3.5-5.1) mmol/L Chloride 102 (98-107) mmol/L Carbon Dioxide 22 (22-30) mmol/L BUN 19 (9-20) mg/dL Creatinine 1.03 (0.66-1.25) mg/dL Glucose 152 H (74-99) mg/dL Calcium 9.9 (8.4-10.2) mg/dL AST 37 (17-59) U/L ALT 26 (4-49) U/L Alkaline Phosphatase 80 (38-126) U/L Total Protein 7.3 (6.3-8.2) g/dL Albumin 5.0 (3.5-5.0) g/dL Current Medications Generic Name Dose Route Start Last Admin Trade Name Freq PRN Reason Stop Dose Admin Miscellaneous Information 1 each 01/16/22 10:04 Rx Info: Iv Contrast Was Given 1 Each Misc MISCELLANE 01/18/22 10:04 DAILY PRN Per Protocol Nitroglycerin 0.4 mg 01/16/22 10:04 Nitroglycerin Sl Tabs 0.4 Mg Tab SUBLINGUAL Q5M PRN Chest Pain Nitroglycerin 1 inch 01/16/22 12:00 Nitroglycerin Oint 1 Inch/Gm Packet TOPICAL Q6HR HARPER Intake and Output 01/15/22 01/16/22 01/16/22 22:59 06:59 14:59 Other: Weight 79.379 kg Patient Weight 01/17/22 06:59 Weight 79.379 kg 01/16/22 08:30 01/16/22 08:30
--- NOTE | 2022-01-16 12:23 | CT ---
CT CHEST FOR PULMONARY EMBOLISM. EXAMINATION TYPE: CT chest w con DATE OF EXAM: 01/16/2022 INDICATION: SOB, Pain under Lt rib cage, history of prior chest injury CT DLP: 344.5 mGycm, Automated exposure control for dose reduction was used. CONTRAST: Patient injected with 100 mL of Isovue 300. COMPARISON: None TECHNIQUE: CT of the chest is performed on a spiral scan at 2 mm thick sections. Study is performed with intravenous contrast timed for evaluation for pulmonary embolism. This will limit additional po rtions of the evaluation. 3-D MIP images reconstructed by the technologist are reviewed on the compu ter in the coronal and sagittal planes. FINDINGS: No mediastinal or hilar adenopathy enlarged by CT criteria is evident. The ascending aorta diameter at the level of the main pulmonary artery is 3.6 cm. The main pulmonary artery diameter at the bifur cation is 2.1 cm. Lung windows are clear. No nodules are identified. No suspicious changes under the left ribs are iden tified. Limited CT section through the upper abdomen are unremarkable. IMPRESSIONS: 1. No acute abnormality to account for patient's symptoms.
[2022-01-16] MEDS: NITROGLYCERIN OINT 1 INCH/GM PACKET TOPICAL SCH ×2 (12:39→18:05)
[2022-01-16] MEDS ORDERED: atenoloL 50 MG TAB PO SCH (13:30)
[2022-01-16] MEDS ORDERED: DEXTROSE 50% SYRINGE 50 ML IVP PRN ×2 (14:23)
--- NOTE | 2022-01-16 14:29 | P.HPIM ---
History of Present Illness H&P Date: 01/16/22 Chief Complaint: chest pain Patient is a 71-year-old male with past medical history of hypertension, dyslipidemia, diabetes presenting for acute chest pain. He claims that he is having left-sided chest pain where he had previously had an accident 20 years a go when a large piece of heavy machinery fell on that area. He has had chronic lower left chest pain since then. He recently stopped taking Elavil about 6 weeks ago for his nerve in neck pain. His chest pain has been intermittent, but worsened today than normal. Last night who was 10/10, mostly in the left lower ribs, nonradiating, dull. He also has associated shortness of breath. He denies any exertional chest pain or shortness of breath, orthopnea, PND, or palpitations. He denies any abdominal pain, nausea, vomiting, urinary complaints or bowel complaints. In the ED, EKG showed normal sinus rhythm, he was slightly tachycardia initially, chest x-ray showed no acute process. He was given Ativan and nitroglycerin sublingual. Labs were insignificant. Troponin negative 2. Lipase mildly elevated at 304. D-dimer negative. Chest CT showed no acute abnormality. Patient seen and examined at bedside. Pertinent positives and negatives as discussed in HPI, a complete review of sy stems was performed and all other systems are negative. Vital signs reviewed General: nontoxic, no distress, appears at stated age Derm: warm, dry Head: atraumatic, normocephalic, symmetric Eyes: EOMI, no lid lag, anicteric sclera, pupils equal round reactive to light ENT: Nose and ears atraumatic Neck: No thyromegaly, supple Mouth: no lip lesion, mucus membranes moist Cardiovascular: S1S2 reg, no murmur, no edema Lungs: clear to auscultation bilateral, no rhonchi, no rales, no wheeze, no acc essory muscle use Abdominal: soft, nontender to palpation, no guarding, no appreciable organomegaly Ext: no gross muscle atrophy, muscle strength muscle strength 5 out of 5 in all 4 extremities, no contractures Neuro: CN II-XII grossly intact Psych: Alert, oriented, appropriate affect Assessment/Plan: Acute chest pain, rule out ACS -Troponin negative 2, trend -EKG shows normal sinus rhythm -Echo pending -Chest x-ray, chest CT unremarkable -Cardiology consult -Telemetry Chronic medical problems: Hypertension Dyslipidemia Diabetes - sliding scale insulin -Medications reviewed and reconciled The patient is admitted with an anticipated less than 2 midnight stay for evaluation of chest pain. Surrogate decision-maker: CODE STATUS: Full code DVT prophylaxis: Heparin subcu Anticipated discharge date: 01/[address]: Home A total of 55 minutes was spent on the care of this complex patient more than 50% of the time was spent in counseling and care coordination. Past Medical History Past Medical History: Diabetes Mellitus, GERD/Reflux, Hyperlipidemia, Hypertension Additional Past Medical History / Comment(s): pt stated "recent positive blood test for adilene pisano, Poss Warthin's tumors on recent CT,mult masses in the neck,currently having difficulty swallowing at times and having swallowing test on 11-13-17",severe headaches,hx kidney stones History of Any Multi-Drug Resistant Organisms: None Reported Past Surgical History: Orthopedic Surgery Additional Past Surgical History / Comment(s): cervical neck fusions,rot cuff repair,hola carpel tunnel,rt inguinal hernia,hola shoulders arthroscopies x6,kidney stone removal Past Anesthesia/Blood Transfusion Reactions: No Reported Reaction Past Psychological History: No Psychological Hx Reported Smoking Status: Former smoker Past Alcohol Use History: Occasional Past Drug Use History: None Reported - Past Family History Mother Family Medical History: No Reported History Father Family Medical History: Cancer Brother(s) Family Medical History: Cancer Additional Family Medical History / Comment(s): thyroid Medications and Allergies Home Medications Medication Instructions Recorded Confirmed Type Atorvastatin Calcium [Lipitor] 20 mg PO HS 01/11/18 01/16/22 History Baclofen [Lioresal] 10 mg PO TID 01/11/18 01/16/22 History Losartan/Hydrochlorothiazide 1 tab PO QAM 01/11/18 01/16/22 History [Losartan-Hctz 100-25 mg Tab] atenoloL [Tenormin] 50 mg PO PC-LUNCH 01/11/18 01/16/22 History metFORMIN HCL ER [Glucophage XR] 500 mg PO BID 01/16/22 01/16/22 History Allergies Allergy/AdvReac Type Severity Reaction Status Date / Time lisinopril Allergy Anaphylaxis Verified 01/16/22 09:45 naproxen [From Aleve] Allergy Swelling Verified 01/16/22 09:45 hands,hives gabapentin AdvReac difficulty Verified 01/16/22 09:45 with urination Physical Exam Vitals: Vital Signs Temp Pulse Resp BP BP Pulse Ox 01/16/22 13:46 97.9 F 17 128/72 98 01/16/22 12:00 98.1 F 80 22 147/98 96 01/16/22 11:30 18 01/16/22 11:00 103 H 18 127/76 99 01/16/22 10:05 110 H 18 131/84 99 01/16/22 08:02 98 F 117 H 20 115/74 99 Intake and Output 01/15/22 01/16/22 01/16/22 22:59 06:59 14:59 Other: Weight 79.379 kg Results CBC & Chem 7: 01/16/22 08:30 01/16/22 08:30 Labs: Abnormal Lab Results - Last 24 Hours (Table) 01/16/22 Range/Units 08:30 Glucose 152 H (74-99) mg/dL Amylase 116 H (30-110) U/L Lipase 304 H (23-300) U/L
[2022-01-16] MEDS: HEPARIN SODIUM,PORCINE/PF 5,000 UNIT/0.5 ML SYRINGE SQ SCH ×2 (15:49→21:21)
[2022-01-16] MEDS: BACLOFEN 10 MG TAB PO SCH ×2 (15:49→21:20)
[2022-01-16 16:27] LABS: Glucose,Whole Blood 126 mg/dL (70-110)
[2022-01-16 16:45] LABS: Appearance,Urine Clear (Clear); Bilirubin,Urine Negative (Negative); Blood,Urine Negative (Negative); Color,Urine Yellow; Glucose,Urine (UA) Negative (Negative); Ketones,Urine Negative (Negative); Leukocyte Esterase,Urine Negative (Negative); Nitrite,Urine Negative (Negative); PH, Urine 7.5 (5.0-8.0); Protein,Urine Negative (Negative); Urobilinogen,Urine <2.0 mg/dL (<2.0)
[2022-01-16 16:46] LABS: Specific Gravity,Urine 1.049 (1.001-1.035)
[2022-01-16] MEDS: INSULIN ASPART (NovoLOG) 100 UNIT/ML VIAL SQ SCH ×2 (17:09→21:20)
--- NOTE | 2022-01-16 18:19 | CA ---
Transthoracic Echo Report Name: Magdaleno Amaya Age: 71 Gender: M : 1950 Exam Date: 01/16/2022 14:17 Exam Location: [facility] Ht (in): 65 Wt (lb): 175 Ordering Physician: Kellee Morley Attending/Referring Phys: [id number], Milli Coin Purse Framer Trinidad Garcia, CRISTO Procedure CPT: Indications: LV function Cardiac Hx: Technical Quality: Contrast 1: Total Dose (mL): Contrast 2: Total Dose (mL): MEASUREMENTS (Male / Female) Normal Values 2D ECHO LV Diastolic Diameter PLAX 3.5 cm 4.2 - 5.9 / 3.9 - 5.3 cm LV Systolic Diameter PLAX 2.1 cm IVS Diastolic Thickness 1.4 cm 0.6 - 1.0 / 0.6 - 0.9 cm LVPW Diastolic Thickness 1.1 cm 0.6 - 1.0 / 0.6 - 0.9 cm LV Relative Wall Thickness 0.7 LA Systolic Diameter LX 3.4 cm 3.0 - 4.0 / 2.7 - 3.8 cm LA Volume 37.6 cm??? 18 - 58 / 22 - 52 cm??? M-MODE Aortic Root Diameter MM 3.7 cm LA Systolic Diameter MM 2.9 cm LA Ao Ratio MM 0.8 AV Cusp Separation MM 2.4 cm DOPPLER MV Area PHT 3.0 cm??? Mitral E Point Velocity 57.8 cm/s Mitral A Point Velocity 107.4 cm/s Mitral E to A Ratio 0.5 MV Deceleration Time 254.1 ms TR Peak Velocity 292.8 cm/s TR Peak Gradient 34.3 mmHg Right Ventricular Systolic Press 39.3 mmHg FINDINGS Left Ventricle Moderately increased septal wall thickness. Left ventricular ejection fraction is estimated at 50-55%. Right Ventricle Normal right ventricular size and function. Mild pulmonary hypertension. Right Atrium Normal right atrial size. Left Atrium Normal left atrial size. Mitral Valve Structurally normal mitral valve. Mild mitral regurgitation. Aortic Valve Aortic valve not well visualized. Tricuspid Valve Structurally normal tricuspid valve.mild tricuspid regurgitation. Pulmonic Valve Pulmonic valve not well visualized. Pericardium Aorta Normal size aortic root and proximal ascending aorta. CONCLUSIONS Normal left ventricular dimension and systolic function Aortic sclerosis Mitral annular calcification Previewed by: Dr. Ba Bermeo MD (Electronically Signed) Final Date: 16 January 2022 18:18
--- NOTE | 2022-01-16 19:50 | US ---
EXAMINATION TYPE: US kidneys/renal and bladder DATE OF EXAM: 01/16/2022 COMPARISON: CT: 05/17/20 CLINICAL HISTORY: left flank pain. left flank pain EXAM MEASUREMENTS: Right Kidney: 9.6 x 4.3 x 4.2 cm Left Kidney: 9.7 x 5.1 x 5.1 cm Right Kidney: No hydronephrosis or masses seen Left Kidney: No hydronephrosis or masses seen Bladder: Bladder diverticulum seen in the posterior portion of bladder. Bilateral Jets seen: Yes IMPRESSION: No evidence of renal mass or obstruction. 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
[2022-01-16] MEDS ORDERED: MELATONIN 3 MG TABLET PO ONE (20:30)
[2022-01-16 20:55] LABS: Glucose,Whole Blood 112 mg/dL (70-110)
[2022-01-16] MEDS ORDERED: ATORVASTATIN 20 MG TAB PO SCH (21:00)
[2022-01-17] MEDS: NITROGLYCERIN OINT 1 INCH/GM PACKET TOPICAL SCH ×2 (01:22→06:19)
[2022-01-17 06:24] LABS: Glucose,Whole Blood 153 mg/dL (70-110)
[2022-01-17] MEDS: INSULIN ASPART (NovoLOG) 100 UNIT/ML VIAL SQ SCH (06:29)
--- NOTE | 2022-01-17 08:50 | P.PN ---
Subjective Progress Note Date: 01/17/22 HISTORY OF PRESENT ILLNESS: This is a 71-year-old male with a past medical history significant for hypertension, hyperlipidemia, and diabetes. 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 We have been asked to see the patient in consultation for chest pain. Patient examined at the bedside. Patient reports 20 years ago he was involved in an accident with a heavy piece of machinery that hit his left side. He states since that time he has had chronic pain of the lower left chest. Patient states he recently stopped taking Elavil (that was prescribed for nerve and neck pain). Patient states he has not been sleeping well. He states he feels confused at times and feels shaky. He reports the pain in his chest today was worse than normal. He reports feeling SOB as well. He states the pain is worse with exertion. He denies any previous history of CAD. He is a former smoker and quit smoking in 1995. * EKG reveals sinus mechanism with no signs of acute ischemia * Chest xray negative for acute process * Laboratory data: WBC 7.8. Hemoglobin 15.5. Platelet count 240. D-dimer 0.25 . Sodium 137. Potassium 3.9. BUN 19. Creatinine 1.03. Troponin negative 1. ProBNP 64. Amylase 116. Lipase 304. * Current home cardiac medications include Lipitor 20 mg at night, atenolol 50 mg daily, and losartan-hydrochlorothiazide 100-25mg daily 11: Patient states that he is having an episode of the pain in the epigastric area that has been chronic for many years. No actual chest pain and no shortness of breath at this time. Echocardiogram came back with EF of 50-55%, aortic sclerosis, mitral annular calcification. Troponins of been negative on 3 draws. Lipid panel is pending. PHYSICAL EXAM: VITAL SIGNS: Reviewed. GENERAL: Well-developed in no acute distress. HEENT: Head is normocephalic. Pupils are equal, round. Sclerae anicteric. Mucous membranes of the mouth are moist. Neck supple. No JVD or thyromegaly LUNGS: Respirations even and unlabored. Lungs essentially clear to auscultation bilaterally. HEART: Regular rate and rhythm. S1 and S2 heard. ABDOMEN: Soft. Nondistended. Nontender. EXTREMITIES: Normal range of motion. No clubbing or cyanosis. Peripheral pulses intact. No lower extremity edema NEUROLOGIC: Awake and alert. Oriented x 3. ASSESSMENT: Atypical musculoskeletal chest pain Hypertension Hyperlipidemia Diabetes Chronic neck and back pain Chronic left sided pain x 20 years from heavy machinery accident Former nicotine dependence, patient quit smoking in 1995 PLAN: Continue patient's home cardiac medications, plan for outpatient follow-up with Dr. Bermeo. Nurse practitioner note has been reviewed by physician. Signing provider agrees with the documented findings, assessment, and plan of care. Objective - Vital Signs Vital signs: Vital Signs Temp 97.7 F 01/17/22 02:09 Pulse 66 01/17/22 02:09 Resp 15 01/17/22 02:09 BP 109/70 01/17/22 02:09 Pulse Ox 98 01/17/22 02:09 FiO2 Intake & Output 01/16/22 01/17/22 01/17/22 18:59 06:59 18:59 Intake Total 478 Balance 478 Weight 79.379 kg Intake: Oral 478 Other: Voiding Method Toilet Toilet # Voids 1 2 - Labs CBC & Chem 7: 01/16/22 08:30 01/16/22 08:30 Labs: Abnormal Lab Results - Last 24 Hours (Table) 01/16/22 01/16/22 01/16/22 Range/Units 08:30 15:03 16:26 Glucose 152 H (74-99) mg/dL POC Glucose (mg/dL) 126 H (70-110) mg/dL Hemoglobin A1c 7.3 H (0.0-6.0) % Amylase 116 H (30-110) U/L Lipase 304 H (23-300) U/L Ur Specific [place] (1.001-1.035) 01/16/22 01/16/22 01/17/22 Range/Units 16:27 20:53 06:23 Glucose (74-99) mg/dL POC Glucose (mg/dL) 112 H 153 H (70-110) mg/dL Hemoglobin A1c (0.0-6.0) % Amylase (30-110) U/L Lipase (23-300) U/L Ur Specific [place] 1.049 H (1.001-1.035)
[2022-01-17 08:52] LABS: LDL Cholesterol,Calculated 60.1 mg/dL (0.0-131.0)
[2022-01-17] MEDS ORDERED: ASPIRIN 81 MG PO SCH (09:00)
[2022-01-17] MEDS ORDERED: LOSARTAN-HCTZ 50-12.5 MG 1 EACH TAB PO SCH (09:00)
[2022-01-17 09:01] VITALS: BP 118/74; PULSE 74; RESP 16; TEMP 97.8
[2022-01-17] MEDS: HEPARIN SODIUM,PORCINE/PF 5,000 UNIT/0.5 ML SYRINGE SQ SCH (09:20)
[2022-01-17] MEDS: BACLOFEN 10 MG TAB PO SCH (09:20)
--- NOTE | 2022-01-17 11:49 | P.DS ---
Providers Date of admission: 01/16/22 10:04 Expected date of discharge: 01/17/22 Attending physician: Claritza Sands MD Consults: 01/16/22 10:04 Consult Physician Urgent Consulting Provider: Ba Bermeo Consult Reason/Comments: cp Do you want consulting provider notified?: Yes Primary care physician: Nicolle Avery [facility] Course: Discharge Diagnosis: Acute on chronic chest pain Possible costochondritis Hypertension Dyslipidemia Diabetes Hospital Course: 71-year-old male with past medical history of hypertension, dyslipidemia, diabetes presenting for acute on chronic chest pain. He is having left-sided chest pain where he had previously had an accident 20 years ago when a large piece of heavy machinery fell on that area. He presented to the emergency due to worsening pain. On admission, chest CT showed no acute abnormalities including no acute fractures. Troponins were negative. D-dimer was negative. EKG showed normal sinus rhythm. Echocardiogram showed LVEF of 50-55%. Patient was evaluated by cardiology. Renal ultrasound showed no renal calculi or hydronephrosis which could explain his left flank pain. He does have a bladder diverticulum on the posterior portion of the bladder. UA was unremarkable. Patient is cleared for discharge from cardiology, will follow up outpatient with Dr. Bermeo. Patient seen and examined at bedside. Vital signs reviewed and stable. General: nontoxic, no distress, appears at stated age Derm: warm, dry Head: atraumatic, normocephalic, symmetric Eyes: EOMI, no lid lag, anicteric sclera Mouth: no lip lesion, mucus membranes moist Cardiovascular: S1S2 reg, no murmur Lungs: CTA bilateral, no rhonchi, no rales , no accessory muscle use Abdominal: soft, nontender to palpation, no guarding, no appreciable organomegaly Ext: no gross muscle atrophy, no edema, no contractures Neuro: CN II-XI grossly intact, no focal neuro deficits Psych: Alert, oriented, appropriate affect A total of 36 minutes of time were spent preparing this complex discharge summary. Patient was discharged on 01/17/22 at 10:18. Patient Condition at Discharge: Stable Plan - Discharge Summary New Discharge Prescriptions: Continue Losartan/Hydrochlorothiazide [Losartan-Hctz 100-25 mg Tab] 1 tab PO QAM Baclofen [Lioresal] 10 mg PO TID atenoloL [Tenormin] 50 mg PO PC-LUNCH Atorvastatin Calcium [Lipitor] 20 mg PO HS metFORMIN HCL ER [Glucophage XR] 500 mg PO BID Discharge Medication List Atorvastatin Calcium [Lipitor] 20 mg PO HS 01/11/18 [History] Baclofen [Lioresal] 10 mg PO TID 01/11/18 [History] Losartan/Hydrochlorothiazide [Losartan-Hctz 100-25 mg Tab] 1 tab PO QAM 01/11/18 [History] atenoloL [Tenormin] 50 mg PO PC-LUNCH 01/11/18 [History] metFORMIN HCL ER [Glucophage XR] 500 mg PO BID 01/16/22 [History] Follow up Appointment(s)/Referral(s): Ba Bermeo MD [STAFF PHYSICIAN] - 1 Week Phoenix Coelho Jr, DO [Doctor of Osteopathic Medicine] - 1-2 Days (New Patient Primary Care Appointment) Patient Instructions/Handouts: Chest Pain (DC), Costochondritis (DC) Activity/Diet/Wound Care/Special Instructions: Please see your PCP and Cardiology as soon as possible. Discharge Disposition: HOME SELF-CARE
== END 2022-01-17 11:48 | disposition home or self-care (01) ==
LOC: EC 07:57 → 6NMEDSUR 10:04
PROVIDERS: ADMIT Family Medicine; ATTEND Family Medicine
DX: R07.89 Other chest pain (principal); E11.9 Type 2 diabetes mellitus without complications; E78.5 Hyperlipidemia, unspecified; K21.9 Gastro-esophageal reflux disease without esophagitis; I10 Essential (primary) hypertension; G89.29 Other chronic pain; M54.2 Cervicalgia; M54.9 Dorsalgia, unspecified; Z87.442 Personal history of urinary calculi; Z87.891 Personal history of nicotine dependence; Z98.1 Arthrodesis status; Z79.84 Long term (current) use of oral hypoglycemic drugs; Z79.899 Other long term (current) drug therapy; Z88.6 Allergy status to analgesic agent; Z20.822 Contact with and (suspected) exposure to COVID-19
CPT/HCPCS: 96372 ×2; 96374; 99285; 36415; 94760; 93005; 93306; 85379; 83880; 80061; 80053; 82150; 83690; 83735; 84484; 85025; 85610; 85730; 81003; 83036; 87635; 71046; 76770; 71260; G0378 ×2; J2060; Q9967; J1644 ×2

== ENCOUNTER → 2022-11-16 | Outpatient (CLI) | payer MEDICARE | END | disposition home or self-care (01) | LOC: LABWHC1 15:30 | PROVIDERS: ATTEND Urology | DX: C61 Malignant neoplasm of prostate (principal) | CPT/HCPCS: 36415; 84153 ==

== ENCOUNTER → 2023-12-14 | Outpatient (CLI) | payer MEDICARE | END | disposition home or self-care (01) | LOC: LABWHC1 10:56 | PROVIDERS: ATTEND Urology | DX: C61 Malignant neoplasm of prostate (principal) | CPT/HCPCS: 36415; 84153 ==